=== PATIENT | male | born 1935 | race Caucasian/White ===

== ENCOUNTER 2017-10-02 15:23 | Day surgery (SDC) | payer MEDICARE ==
[~2017-10-02] VITALS: Ht 170.2 cm; Wt 77.0 kg
[~2017-10-02 15:23] MED LIST: ASPI81 PO; CLOP75 PO; LIPI80TA16 PO; METO25 PO
[2017-10-02 16:10] VITALS: BP 160/90; PULSE 56; RESP 18; TEMP 97.8; O2SAT 97
[2017-10-02] MEDS ORDERED: VANCOMYCIN 1000 MG/NS 250 ML IV SCH ×2 (16:15)
[2017-10-02] MEDS ORDERED: POVIDONE IODINE 5% (ANTISEPSIS KIT) 4 APPLICATIONS EACH NARE SCH (16:15)
[2017-10-02] MEDS ORDERED: METOPROLOL TARTRATE 25 MG TAB PO PRN (16:15)
[2017-10-02] MEDS ORDERED: CHLORHEXIDINE GLUCONATE 2 % 1 PACK (2 CLOTHS) TOPICAL PRN (16:15)
[2017-10-02] MEDS ORDERED: ceFAZolin 2 GM PREMIX 50 ML IV SCH (16:15)
[2017-10-02] MEDS ORDERED: MUPIROCIN 2% OINT 1 APPLIC/GM SYR NASAL SCH (16:15)
[2017-10-02] MEDS ORDERED: LACTATED RINGER'S 1000 ML IV PRN (16:15)
[2017-10-02] MEDS ORDERED: POVIDONE IODINE 5% (ANTISEPSIS KIT) 4 APPLICATIONS EACH NARE PRN (16:15)
[2017-10-02] MEDS ORDERED: SODIUM CHLORID 0.9% 500 ML IV PRN (16:15)
[2017-10-02] MEDS ORDERED: CHLORHEXIDINE GLUCONATE 2 % 1 PACK (2 CLOTHS) TOPICAL SCH (16:15)
[2017-10-02] MEDS ORDERED: NS 1000 ML IV SCH (16:15)
[2017-10-02] MEDS ORDERED: METO25TA3 PO (16:19)
[2017-10-02] MEDS ORDERED: ASPI81TA23 PO (16:19)
[2017-10-02] MEDS ORDERED: ATOR80TA45 PO (16:19)
[2017-10-02 16:28] LABS: AUTOMATED NEUTROPHIL # 4.9 TH/MM3 (1.8-7.7); BASOPHIL % 0.5 % (0.0-2.0); EOSINOPHIL # 0.2 TH/MM3 (0-0.4); EOSINOPHIL % 2.1 % (0.0-4.0); HEMATOCRIT 45.7 % (39.0-51.0); HEMOGLOBIN 15.4 GM/DL (13.0-17.0); LYMPH % 27.6 % (9.0-44.0); LYMPHOCYTE # 2.2 TH/MM3 (1.0-4.8); MEAN CELL VOLUME 93.1 FL (80.0-100.0); MEAN CORPUSCULAR HEMOGLOBIN 31.4 PG (27.0-34.0); MEAN CORPUSCULAR HGB CONC 33.7 % (32.0-36.0); MONO % 7.2 % (0.0-8.0); MONOCYTE # 0.6 TH/MM3 (0-0.9); NEUT % 62.6 % (16.0-70.0); PLATELET COUNT 218 TH/MM3 (150-450); RED CELL DISTRIBUTION WIDTH 13.3 % (11.6-17.2); WHITE BLOOD COUNT 7.9 TH/MM3 (4.0-11.0)
[2017-10-02 16:39] LABS: INTERNATIONAL NORMALIZED RATIO 1.1 RATIO; PROTHROMBIN TIME - PATIENT 10.9 SEC (9.8-11.6)
[2017-10-02 16:40] LABS: BICARBONATE 29.3 MEQ/L (21.0-32.0); CALCIUM 8.7 MG/DL (8.5-10.1); CREATININE 1.07 MG/DL (0.60-1.30)
[2017-10-02] MEDS ORDERED: VANCOMYCIN 500 MG VIAL ONE (17:35)
[2017-10-02] MEDS ORDERED: ceFAZolin INJ 1,000 MG VIAL ONE (17:35)
[2017-10-02] MEDS ORDERED: LIDOCAINE HCL 2% 20 ML VIAL ONE (17:35)
[2017-10-02] MEDS ORDERED: MIDAZOLAM HCL 2 MG/2 ML VIAL ONE (17:38)
[2017-10-02] MEDS ORDERED: DO NOT ADM ANY ANTICOAGULANT DRUGS PRN (18:30)
--- NOTE | 2017-10-02 18:41 | PD.CARD ---
Dual Defib Replacement PROCEDURE DATE: October 02, 2017 NYHA Classification: Class I (Mild) Prevention: Secondary Dual Defib Replacement PROCEDURE 1. single-chamber defibrillator removal. 2. Single-chamber defibrillator replacement. 3. Pocket revision. 4. Device testing. Mr. Pena is a 82 -year-old male with hx of coronary artery disease, CABG, episode of sudden , defibrillator currently end of life, admitted for generator replacement, secondary prevention, and device testing. The risks, the nature and the benefit of the procedure clearly stated to him. The risks include pneumothorax, cardiac perforation, stroke and even . He understood and agreed to proceed. PROCEDURE After written informed consent was obtained, the patient was brought to the EP lab where he was prepped and draped in the usual sterile fashion. Conscious sedation was initiated and maintained throughout the procedure by anesthesiologist. Once sedation was verified, the left infraclavicular area was anesthetized with 2% Xylocaine. Using #11 blade scalpel, a 3-cm incision was made over the existing generator. The incision was then taken down deep fascial layers generator exposed. Once exposed, it was removed from the pocket. Scar tissue was removed around the lead pocket revision was performed. Pocket was expanded. Then, the lead was disconnected from the generator and tested. After adequate pacing and sensing thresholds were obtained. The leads were connected to the new generator and placed into the pocket. I then proceeded with NIPS. Initial induction consisted of T-wave shock from ventricular fibrillation which was adequately detected and treated by the ICD generator delivering the 20 joule defibrillatory shock converting the patient back into sinus rhythm. Shocking impedance 46 ohms, charge time 3.2 seconds. At that point NIPS was completed. I then proceeded with wound closure. The deep fascial layer was approximated using 2-0 Vicryl suture in a continuous fashion. The subcutaneous layer was approximated using 2-0 Vicryl suture in a continuous fashion. The subcuticular layer was approximated using 2-0 Vicryl suture in a continuous fashion. Dermabond adhesive was applied to the wound followed by sterile pressure dressing. There was no complication. The patient tolerated procedure. Blood loss minimal. 1. Explanted hardware: The explanted defibrillator is a [employer] model number 1207-36, serial number [id number]. That was implanted in 2007. For information about existing lead please refer to previous dictation. 2. Implanted hardware: The implanted defibrillator generator is a [employer], model number VL0185-89W, serial number [id number]. 3. Threshold: The right ventricular pacing threshold in the bipolar mode was 1.25 volts at 0.4 milliseconds. Lead impedance 340 ohms and R-wave at >12.0 mV. The right ventricle defibrillatory threshold less than or equal to 20 joules, shocking impedance 46 ohms, charge time 3.2 seconds. 4. Settings: The device is set in a VVI 40. Defibrillatory portioned for two zones, one zone for ventricular tachycardia between 170 to 250 beats per minute. Initial therapy consists of one burst of ATP, one ramp, 81%, 10 pulses, 10 ms decremental followed by 20 then 30 and all subsequent shocks at 40 defibrillatory shock. Second zone for ventricular fibrillation above 250 beats per minute, first therapy at 30 and all subsequent shocks at 40 joule defibrillatory shock. CONCLUSIONS Successful defibrillator removal, defibrillator replacement and device testing. COMMENT/RECOMMENDATIONS The patient will be transferred to telemetry unit. He will be observed, when stable can be discharged home Rani Alfred MD October 02, 2017 18:41
[2017-10-02] MEDS ORDERED: NORC5TAB PO (18:44)
[2017-10-02] MEDS ORDERED: CEPH-460 PO (18:44)
[2017-10-02] MEDS ORDERED: ONDANSETRON ODT 4 MG TAB PO PRN (18:45)
[2017-10-02] MEDS ORDERED: ACETAMINOPHEN/CODEINE 300 MG/30 MG TAB PO PRN ×2 (18:45)
[2017-10-02] MEDS ORDERED: SODIUM CHLORIDE 0.9% FLUSH 10 ML FLUSH IV FLUSH PRN (18:45)
--- NOTE | 2017-10-02 18:45 | CATHPROC ---
Patient Name: DK FLOWER Study #: [id number] Initial MD: Rani Alfred Date of : 1935 Study Date: 10/02/2017 Cardiac Catheterization Report 10/02/2017 6:47:37 PM Financial #: [id number] 1 of 7 Patient Name: DK FLOWER Study #: [id number] Initial MD: Rani Alfred Date of : 1935 Study Date: 10/02/2017 Entire Case Report Patient Information Patient Name DK FLOWER Date of 1935 Age 82 years Financial # [id number] Gender M AlternateID Lab Number 6 Room Number DC10 Height (in) 67.0 Height (cm) 170.2 BSA 1.89 Weight (lbs) 169.4 Weight (kg) 77.0 Patient Address/Phone Number Home Address [facility] Home Phone Number [address] [facility] [address] Study Information Study Number Admission Scheduled Start Study Start [id number] Oct 02 2017 3:23PM 10/02/2017 Oct 02 2017 3:53PM [place] [facility] Cardiac Pacer/ICD Admit Source Facility Department Other [facility] Physician and Clinical Staff Initial Rani Ramirez Resource Management Specialist Cindy Arauz,RN Resource Management Specialist Nadege Jolley,FARROWING MANAGER TECH2 Other Anesthesia, CULTURE ROOM WORKER Recorder Court Pitts,ADAM Scrub Anurag Thornton,RT(R) 10/02/2017 6:47:37 PM Financial #: [id number] 2 of 7 Patient Name: DK FLOWER Study #: [id number] Initial MD: Rani Alfred Date of : 1935 Study Date: 10/02/2017 Equipment Time Director Of Federal Sales Description Size Mfg Part Number Used/Scraped DERMABOND, ADHESIVE SKIN [id number] 15:55 CORDIS/PACER * Used GLUE MINI *[id number] TP-1103 15:55 MEDLINE INDUSTRIES SUTURE, STRIP PLUS 1/2" * Used *[id number] 15:55 MEDLINE PACER DIAZ, LIMB * 2530 *[id number] Used [id number] 15:55 MEDLINE PACER PACK, PACER CUSTOM * Used *[id number] 17:56 Needle Sponge Count 2 2 Used 17:57 Needle Sponge Count 2 22 Used 17:57 Needle Sponge Count 20 200 Used SUTURE, 0 ETHIBOND [CT1] (CX21D), 8pk SUTURE, 2-0 VICRYL [CT1] (HHC829M) SUTURE, 2-0 VICRYL [CT1] (EPD930U) [id number] 15:55 [employer],WARM AIR CCL * Used *[id number] DEFIBRILLATOR, FORTIFY 18:15 [employer] VVEVVVIRV [id number] Used ASSURA VR [facility] PAD, ELECTROSURGICAL 15:55 * [id number] *[id number] Used SURGICAL GROUNDING ORANGE 3846-4705 15:55 [employer] STEPHANIE. / * Used *63596 Equipment Model, Serial, Lot Number and Expiration Data Description Model Number Serial Number Lot Number Expiration Date DEFIBRILLATOR, FORTIFY ASSURA [id number] 10-10-2017 VR Insurance Information Insurance Payor Private Health Insurance Third Alliance Party Third Alliance Party Number C - MCR O [id number] History: Allergies Allergy Reaction No Known Allergies 10/02/2017 6:47:37 PM Financial #: [id number] 3 of 7 Patient Name: DK FLOWER Study #: [id number] Initial MD: Rani Alfred Date of : 1935 Study Date: 10/02/2017 History: Risk Factors Family History of Hypertension Dyslipidemia Previous MT Previous Heart Failure Premature CAD Yes Yes No Yes No Prior Valve Prior PCI Prior CABG Surgery No No Yes Cerebrovascular Peripheral Artery Chronic Lung On Dialysis Diabetes Disease Disease Disease No No Yes No No Medication Medication Total Dose (Bolus/Oral) Medication Total Dosage/Unit 2% XYLOCAINE 50 mL Medications (Bolus/Oral) Medication Time Given Dosage/Unit Administered By Reason 2% XYLOCAINE 10/02/2017 6:13:31 PM 50 mL Rani Alfred 50 mL 2% XYLOCAINE given in lab by Rani Alfred via Subcutaneous. Ordered by Rani Alfred. Medication (Drip) Medication Time Given Dosage/Unit Concentration/Unit Diluent (ml) Solution ANCEF 10/02/2017 5:50:00 PM 2 g 2 g ANCEF given in lab by Anesthesia, CULTURE ROOM WORKER via Peripheral IV. Ordered by Rani Alfred. Reason: As pe r physicians verbal order. VANCOMYCIN DRIP 10/02/2017 5:53:53 PM 1 g 1 g VANCOMYCIN DRIP given in lab by Anesthesia, CULTURE ROOM WORKER via Peripheral IV. Ordered by Rani Alfred. [place] son: As per physicians verbal order. 10/02/2017 6:47:37 PM Financial #: [id number] 4 of 7 Patient Name: DK FLOWER Study #: [id number] Initial MD: Rani Alfred Date of : 1935 Study Date: 10/02/2017 Initial Case Assessment Cardiovascular HR NIBP 61 170/84 Edema Present Skin color Skin None Normal Warm Dry Circulatory - Right Pulses Dorsalis Pedis 1 Scale (0,1,2,3,4,d) Circulatory - Left Pulses Dorsalis Pedis 1 Scale (0,1,2,3,4,d) Circulatory - Lower Extremities Color Lower Right Color Lower Left Normal Normal Neurological State Oriented to time-place- Alert Moves all extremities person Respiration - General Respiration Rate SpO2 (%) (B/min) 18 97 Chronological Log Time Study Chronological Log 17:30:00 Patient arrived via Bed. 17:30:03 Patient Name, D.O.B, / Armband Verified By R.N. 17:30:08 Patient has been NPO for More than 6Hrs. 17:30:09 2% CHLORHEXIDINE GLUCONATE WASH AND NASAL SWIPE DONE PRIOR TO PROCEDURE. 17:30:30 History and physical on the chart. 17:30:33 Anesthesia at bedside. Assumes care of patient. 17:30:40 Consent signed by the physician and the patient and verified by the [employer] staff. 17:30:50 Pre-op and post- op instructions given; patient acknowledges understanding of instructions. 17:31:21 Skin Breakdown- none per pt 10/02/2017 6:47:37 PM Financial #: [id number] 5 of 7 Patient Name: DK FLOWER Study #: [id number] Initial MD: Rani Alfred Date of : 1935 Study Date: 10/02/2017 17:32:22 Patient Warmer Placed on the Table. 17:33:23 Disposable Defibrillator Pads Placed On Patient. 17:35:23 Jones Prominences Protected 17:41:43 Bovie ground pad applied to: right thigh Assessment: Initial Case, HR=61 BPM, NZCP=484/84 mmhg, Edema=None, Color=Normal, Skin = Warm, D ry Right Pulses: Kye Ped=1 Left Pulses: Kye Ped=1 17:45:00 Lower Right Extremities: Color=Normal Lower Left Extremities: Color=Normal Neurological: State=Alert, Ox3, FISH Respiration: Resp=18 B/min, SpO2=97 % 17:48:03 Table restraints applied according to hospital policy 2 g ANCEF given in lab by Anesthesia, CULTURE ROOM WORKER via Peripheral IV. Ordered by Rani Alfred. Reason: As per physicians 17:50:00 verbal order. First Sponge And Instrument Count Done by Anurag Thornton, RT(R). 17:50:17 Hypo's: 2, Sponges: 20, Bovie/scratch: 2 Sutures: 10, Blades: 1, Instruments: 26, Syveck Patches: ~SYVECK PATCH~ verified with TF 1 g VANCOMYCIN DRIP given in lab by Anesthesia, CULTURE ROOM WORKER via Peripheral IV. Ordered by Colette Alfred Reason: As per 17:53:53 physicians verbal order. 17:54:[address] Elizabeth at bedside for intubation with LMA. 17:55:18 Left Upper Chest Prepped Times Two. 17:58:50 A sterile drape was applied after a 3 minute drying time. 18:08:39 MD paged 18:09:45 MD responded 18:10:46 Reference ECG taken 18:11:51 MD arrived. Time Out. Correct patient, procedure, procedure equipment, site and side verified with physicia n present. Time 18:12:02 concurred by MD, individual staff and CULTURE ROOM WORKER. Time Out #2 - Consents verified, patient in correct position, all results are labled and displa yed, safety precautions 18:13:08 taken, antibiotics administered. Time out concurred by MD, individual staff and CULTURE ROOM WORKER in procedu re 18:13:11 Case Start 18:13:31 50 mL 2% XYLOCAINE given in lab by Rani Alfred via Subcutaneous. Ordered by Rani Alfred . 18:14:03 Surgical Incision Made. 18:15:25 A pocket was created at the Lt. upper chest. 18:15:45 A device was explanted. 18:20:05 Pocket flushed with antibiotic solution 18:21:22 A DEFIBRILLATOR, FORTIFY ASSURA VR VVEVVVIRV was connected and placed in the pocket. 18:24:21 The pocket was closed. 18:25:08 PACU called. Spoke to [place] 18:25:41 Bedside Report will be given. Second Sponge And Instrument Count Done by Anurag Thornton RT(R). 18:27:05 Hypo's: 2, Sponges: 20, Bovie/scratch: 2 Sutures: 10, Blades: 1, Instruments: ~INSTRU~, Syveck Patches: ~SYVECK PATCH~ verified with SH 10/02/2017 6:47:37 PM Financial #: [id number] 6 of 7 Patient Name: DK FLOWER Study #: [id number] Initial MD: Rani Alfred Date of : 1935 Study Date: 10/02/2017 18:27:19 Implant Procedure was performed. 18:27:30 A ICD Removal . (Single) 18:28:05 A ICD Implant . (Single) 18:31:06 A two Joul DFT was performed. 18:31:47 The DFT was Success at 20 Joules, 46 Ohms lead impedance and 3.2 ms charge time. 18:32:52 Bedside Report will be given. Final Sponge And Instrument Count Done by Anurag Thornton RT(R). 18:34:16 Hypo's: 2, Sponges: 20, Bovie/scratch: 2 Sutures: 10, Blades: 1, Instruments: 26, Syveck Patches: ~SYVECK PATCH~ verified with TF 18:35:54 Steri-strips and a sterile dressing applied to site. 18:36:26 Case End 18:41:37 LMA withdrawn and pt placed to supplemental oxygen @ 4l/min 18:42:22 No case complications noted. 18:42:24 Cine recording checked. 18:42:54 Implantable Device card placed in patient's chart. 18:44:09 Patient moved to stretcher 18:45:57 A sling was placed on the affected arm. 18:49:20 Pt transported via bed with CULTURE ROOM WORKER and tech accompanying in stable condition breathing indep endently. End Study - Contrast Media Used In Study Contrast Total Opened (mL) Total Used (mL) Total Wasted (mL) Unspecified 0 0 0 End Study - Radiation Exposure Fluoro Time (minutes) 0.1 End Study - Patient Disposition Complications Transferred To Telemetry Bed 10/02/2017 6:47:37 PM Financial #: [id number]
[2017-10-02 19:30] VITALS: BP 124/67; PULSE 61; RESP 16; TEMP 98.2; O2SAT 99
[2017-10-02] MEDS ORDERED: SODIUM CHLORIDE 0.9% FLUSH 10 ML FLUSH IV FLUSH SCH (21:00)
--- NOTE | 2017-10-04 08:18 | EKG ---
Date Performed: 10/02/2017 Time Performed: 19:21:34 PTAGE: 82 years EKG: Sinus rhythm WITH FIRST DEGREE AV BLOCK INFERIOR MYOCARDIAL INFARCTION , PROBABLY OLD ABNORMAL ECG NO PREVIOUS TRACING DOCTOR: Rani Alfred Interpretating Date/Time 10/04/2017 08:14:09
--- NOTE | 2017-10-04 08:24 | EKG ---
Date Performed: 10/02/2017 Time Performed: 16:37:10 PTAGE: 82 years EKG: Sinus bradycardia with borderline 1st degree A-V block. Inferior infarct - age undetermined Abnormal ECG NO PREVIOUS TRACING DOCTOR: Rani Alfred Interpretating Date/Time 10/04/2017 08:16:48
== END 2017-10-02 16:30 | disposition home or self-care (01) ==
LOC: HDOC 15:23 → HDIC 15:25 → HDOC 16:30
PROVIDERS: ATTEND Internal Medicine Interventional Cardiology
DX: Z45.02 Encounter for adjustment and management of automatic implantable cardiac defibrillator (principal); I44.0 Atrioventricular block, first degree; I77.9 Disorder of arteries and arterioles, unspecified; I25.10 Atherosclerotic heart disease of native coronary artery without angina pectoris; I10 Essential (primary) hypertension; I73.9 Peripheral vascular disease, unspecified; R06.00 Dyspnea, unspecified; I25.2 Old myocardial infarction; Z95.1 Presence of aortocoronary bypass graft; Z01.818 Encounter for other preprocedural examination; Z01.810 Encounter for preprocedural cardiovascular examination; Z87.891 Personal history of nicotine dependence
CPT/HCPCS: 00534; 33262; 80048; 85025; 85610; 85730; 86850; 86900; 86901; 93005; 93641; C1722; J0690; J2250; J3010; J3370; J7050